=== PATIENT | male | born 1950 | race Caucasian/White ===

== ENCOUNTER 2017-04-21 10:47 | Emergency (ER) | payer SELFPAY ==
[~2017-04-21] VITALS: Ht 182.9 cm; Wt 100.0 kg
[2017-04-21 10:49] VITALS: BP 219/112; PULSE 101; RESP 16; TEMP 98.7; O2SAT 94
[2017-04-21 10:56] VITALS: BP 223/125
[2017-04-21 11:13] VITALS: BP 213/123; PULSE 94; RESP 18
[2017-04-21] MEDS ORDERED: amLODIPine BESYLATE 5 MG TAB PO ONE (11:15)
--- NOTE | 2017-04-21 11:24 | PD ---
HPI Chief Complaint: Psychiatric Symptoms Time Seen by Provider: 11:03 Travel History International Travel<30 days: No Contact w/Intl Traveler<30days: No Traveled to known affect area: No History of Present Illness HPI This is a 66-year-old male who presents to the emergency department saying that he was brought in by his girlfriend because she wanted him to be seen by a psychiatrist. His girlfriend thinks that he is crazy. He says for the past 3 years his girlfriend has been very paranoid saying that he has been putting cameras all over the house, that he has mirrors in his car that he records her with and she intermittently pulls wires out of the wall and accuses him of different things. He says he does not think he is crazy. He does smoke marijuana from time to time. He does not see a primary care doctor and does not take anything for his blood pressure. He denies chest pain or shortness of breath and has no medical complaints. PFS Past Medical History Pneumonia: Yes Tetanus Vaccination: < 5 Years Social History Alcohol Use: No Tobacco Use: Yes Substance Use: Yes (THC) Allergies-Medications (Allergen,Severity, Reaction): Coded Allergies: No Known Allergies (Unverified , 04/21/17) Reported Meds & Prescriptions Reported Meds & Active Scripts Active No Active Prescriptions or Reported Medications Review of Systems Except as stated in HPI: all other systems reviewed are Neg Physical Exam Narrative GENERAL:Well appearing, no acute distress SKIN: Focused skin assessment warm and dry. HEAD: Atraumatic. Normocephalic. EYES: Pupils equal and round. No injection or drainage. ENT: Moist mucous membranes NECK: Trachea midline. CARDIOVASCULAR: Regular rate and rhythm. No murmur appreciated. RESPIRATORY: Clear to auscultation. Breath sounds equal bilaterally. GASTROINTESTINAL: Abdomen soft, non-tender, nondistended. MUSCULOSKELETAL: No obvious deformities. NEUROLOGICAL: Awake and alert. No obvious cranial nerve deficits. Moving all extremities. PSYCHIATRIC: Appropriate mood and affect; insight and judgment normal. Data Data Last Documented VS Vital Signs Date Time Temp Pulse Resp B/P (MAP) Pulse Ox O2 Delivery O2 Flow Rate FiO2 04/21/17 11:57 80 17 204/106 (138) 96 04/21/17 10:49 98.7 Orders Orders Basic Metabolic Panel (Bmp) (04/21/17 11:14) Amlodipine (Norvasc) (04/21/17 11:15) Lorazepam Inj (Ativan Inj) (04/21/17 11:30) Labs Laboratory Tests Test 04/21/17 11:25 Blood Urea Nitrogen 19 MG/DL Creatinine 1.49 MG/DL Random Glucose 131 MG/DL Calcium Level 9.3 MG/DL Sodium Level 141 MEQ/L Potassium Level 2.9 MEQ/L Chloride Level 103 MEQ/L Carbon Dioxide Level 32.1 MEQ/L Anion Gap 6 MEQ/L Estimat Glomerular Filtration Rate 47 ML/MIN MDM Medical Decision Making Medical Screen Exam Complete: Yes Emergency Medical Condition: Yes Interpretation(s) afebrile, mild tachycardia,severe hypertension Hypokalemia Renal insufficiency likely chronic Differential Diagnosis Hypertension, hypertensive urgency, hypertensive emergency, psychosis, substance intoxication Narrative Course This is a 66-year-old male who presents to the emergency department because his girlfriend wanted him to have a psychiatric evaluation. On my assessment the patient appears organized, cohesive, and does not appear acutely psychotic. I do not think he requires psychiatric evaluation. He does have markedly high blood pressure. He has not seen a doctor in years. Labs were obtained which demonstrate renal insufficiency which is likely chronic and hypokalemia. Patient was given a dose of amlodipine and his potassium was repleted. I urged him to follow-up with a primary care physician as soon as possible as he likely has had poorly controlled hypertension for a long time and this is worsening. Diagnosis Primary Impression: Hypertension Qualified Codes: I10 - Essential (primary) hypertension Additional Impression: Hypokalemia Referrals: [facility] Patient Instructions: General Instructions Additional Instructions: If you develop severe chest pain, shortness of breath, sweating, lightheadedness , dizziness or difficulty breathing return to the emergency department immediately. Followup with your primary care physician in 2-3 days if your symptoms are not resolved. Med/Other Pt SpecificInfo: Prescription(s) given Scripts Amlodipine (Amlodipine) 5 Mg Tab 5 MG PO DAILY for Blood Pressure Management, #14 TAB 0 Refills Prov: Audrey Herrera MD 04/21/17 Disposition: 01 DISCHARGE HOME Condition: Stable Audrey Herrera MD Apr 21, 2017 11:23
[2017-04-21] MEDS ORDERED: LORazepam 2 MG/ML VIAL IV PUSH ONE (11:30)
[2017-04-21 11:57] VITALS: BP 204/106; PULSE 80; RESP 17; O2SAT 96
[2017-04-21 12:26] LABS: BICARBONATE 32.1 MEQ/L (21.0-32.0); CALCIUM 9.3 MG/DL (8.5-10.1); CREATININE 1.49 MG/DL (0.60-1.30)
[2017-04-21] MEDS ORDERED: AMLO5TAB2 PO (12:36)
[2017-04-21] MEDS ORDERED: POTASSIUM CHLORIDE 25 MEQ EFFERVESCENT TAB PO SCH (12:45)
== END 2017-04-21 12:53 | disposition home or self-care (01) ==
LOC: NEPC 10:47
DX: I10 Essential (primary) hypertension (principal); E87.6 Hypokalemia; R00.0 Tachycardia, unspecified; F12.90 Cannabis use, unspecified, uncomplicated; Z72.0 Tobacco use; N28.9 Disorder of kidney and ureter, unspecified
CPT/HCPCS: 80048; 96374; 99284; J2060